=== PATIENT | female | born 2000 | race Hispanic/Latino ===

== ENCOUNTER 2024-07-29 09:59 | Emergency (ER) | payer OTHER ==
[~2024-07-29] VITALS: Ht 160 cm; Wt 68.0 kg
[2024-07-29 10:40] VITALS: BP 103/64
[2024-07-29 10:46] VITALS: BP 108/82
[2024-07-29 10:58] LABS: BASO% 0.9 % (0-3); EOS% 0.5 % (0-8); HEMATOCRIT 38.6 % (37.0-47.0); HEMOGLOBIN 12.6 g/dl (12.0-16.0); IMMATURE GRANULOCYTES 0.1 % (0.0-5.0); LYMPH% 24.3 % (15-41); MEAN CELL VOLUME 93.7 fL CALC (80.0-100.0); MEAN CORPUSCULAR HGB 30.6 pG CALC (26.0-32.0); MEAN CORPUSCULAR HGB CONC 32.6 g/dL CAL (32.0-36.0); MONO% 6.2 % (2-13); NEUT# 5.13 thou/uL (2.00-7.15); RED BLOOD COUNT 4.12 mill/uL (4.20-5.60); RED CELL DISTRI WIDTH 12.2 % (11.5-15.5)
[2024-07-29 10:58] LABS: URINE BILIRUBIN - DIPSTICK Negative (NEGATIVE); URINE BLOOD DIPSTICK Small (NEGATIVE); URINE GLUCOSE - DIPSTICK Negative (NEGATIVE); URINE KETONE Negative (NEGATIVE); URINE NITRITE - DIPSTICK Negative (Negative); URINE PROTEIN - DIPSTICK Negative (NEG-TRACE); URINE SPECIFIC GRAVITY >=1.030; URINE UROBILINOGEN - DIPSTICK 0.2 E.U./dL (0.2)
[2024-07-29 10:59] LABS: URINE COLOR Yellow; URINE LEUK ESTERASE Moderate (NEGATIVE)
[2024-07-29 11:00] VITALS: BP 109/53
[2024-07-29 11:00] LABS: URINE BACTERIA MANY hpf; URINE EPITHELIAL CELLS RARE EPI/hpf (0-FEW); URINE RBC 0-2 RBC/hpf (0-5)
[2024-07-29 11:15] VITALS: BP 116/80
[2024-07-29 11:23] LABS: ALBUMIN 4.4 g/dL (3.2-5.0); BILIRUBIN, TOTAL 0.3 mg/dL (0.02-1.3); CREATININE 0.6 mg/dL (0.5-1.0); POTASSIUM 4.2 mmol/l (3.5-5.1); TOTAL PROTEIN 7.5 g/dL (6.3-8.2)
[2024-07-29] MEDS ORDERED: CEPHALEXIN500 M1 PO (11:27)
[2024-07-29 11:31] VITALS: BP 100/48
[2024-07-29 11:41] VITALS: BP 100/48
== END 2024-07-29 11:41 | disposition home or self-care (01) | DRG 690 ==
LOC: ED 09:59
PROVIDERS: Family Medicine
DX: N39.0 Urinary tract infection, site not specified (principal)

== ENCOUNTER 2024-08-04 09:05 | Emergency (ER) | payer OTHER ==
[~2024-08-04] VITALS: Ht 160 cm; Wt 79.3 kg
[~2024-08-04 09:05] MED LIST: CEPHALEXIN500 M1 PO
[2024-08-04 09:32] VITALS: BP 118/54
[2024-08-04 10:08] LABS: URINE BILIRUBIN - DIPSTICK Negative (NEGATIVE); URINE BLOOD DIPSTICK Large (NEGATIVE); URINE GLUCOSE - DIPSTICK Negative (NEGATIVE); URINE KETONE Negative (NEGATIVE); URINE NITRITE - DIPSTICK Negative (Negative); URINE PH 5.5 (4.5-8.0); URINE PROTEIN - DIPSTICK Trace mg/dL (NEG-TRACE); URINE UROBILINOGEN - DIPSTICK 0.2 E.U./dL (0.2)
[2024-08-04 10:09] LABS: URINE COLOR Yellow; URINE LEUK ESTERASE Moderate (NEGATIVE)
[2024-08-04 10:16] LABS: URINE RBC 50-100 RBC/hpf (0-5); URINE WBC 50-100 WBC/hpf (0-5)
[2024-08-04 10:17] LABS: URINE BACTERIA FEW hpf
[2024-08-04] MEDS ORDERED: PHENAZOPYRIDINE HCL 100 MG/TAB PO ONE (10:30)
[2024-08-04] MEDS ORDERED: NITROFURANTOIN 100 MG/CAP PO ONE (10:30)
[2024-08-04] MEDS ORDERED: MACROBID100 M1 PO (10:30)
[2024-08-04 10:46] VITALS: BP 118/54
== END 2024-08-04 10:51 | disposition home or self-care (01) | DRG 690 ==
LOC: ED 09:05
PROVIDERS: Family Medicine
DX: N39.0 Urinary tract infection, site not specified (principal)

== ENCOUNTER 2024-08-26 16:21 | Emergency (ER) | payer OTHER ==
[~2024-08-26] VITALS: Ht 160 cm; Wt 77.0 kg
[~2024-08-26 16:21] MED LIST changes: +MACROBID100 M1 PO
[2024-08-26 16:52] VITALS: BP 133/99
[2024-08-26] MEDS ORDERED: SODIUM CHLORIDE 0.9% 1,000 ML IV ONE (16:55)
[2024-08-26] MEDS ORDERED: KETOROLAC TROMETHAMINE 30 MG/ML SDV IV ONE (16:55)
[2024-08-26] MEDS ORDERED: DiphenhydrAMINE HCL 50 MG/ML SDV IV ONE (16:55)
[2024-08-26] MEDS ORDERED: METOCLOPRAMIDE HCL 10 MG/2 ML SDV IV ONE (16:55)
[2024-08-26 17:00] VITALS: BP 127/78
[2024-08-26 17:11] LABS: BASO% 0.5 % (0-3); EOS% 0.5 % (0-8); HEMATOCRIT 39.2 % (37.0-47.0); HEMOGLOBIN 12.8 g/dl (12.0-16.0); IMMATURE GRANULOCYTES 0.2 % (0.0-5.0); LYMPH% 32.3 % (15-41); MEAN CELL VOLUME 92.9 fL CALC (80.0-100.0); MEAN CORPUSCULAR HGB 30.3 pG CALC (26.0-32.0); MEAN CORPUSCULAR HGB CONC 32.7 g/dL CAL (32.0-36.0); MONO% 6.6 % (2-13); NEUT# 5.46 thou/uL (2.00-7.15); NEUT% 59.9 % (42-76); RED BLOOD COUNT 4.22 mill/uL (4.20-5.60); RED CELL DISTRI WIDTH 11.6 % (11.5-15.5)
[2024-08-26 17:18] LABS: URINE BILIRUBIN - DIPSTICK Negative (NEGATIVE); URINE BLOOD DIPSTICK Trace-intact (NEGATIVE); URINE GLUCOSE - DIPSTICK Negative (NEGATIVE); URINE KETONE Negative (NEGATIVE); URINE LEUK ESTERASE Negative (NEGATIVE); URINE NITRITE - DIPSTICK Negative (Negative); URINE PROTEIN - DIPSTICK Negative (NEG-TRACE); URINE UROBILINOGEN - DIPSTICK 0.2 E.U./dL (0.2)
[2024-08-26 17:19] LABS: URINE COLOR Yellow
[2024-08-26 17:22] LABS: ALBUMIN 4.5 g/dL (3.2-5.0); BILIRUBIN, TOTAL 0.4 mg/dL (0.02-1.3); CREATININE 0.6 mg/dL (0.5-1.0); POTASSIUM 3.9 mmol/l (3.5-5.1); TOTAL PROTEIN 7.8 g/dL (6.3-8.2)
[2024-08-26 17:30] VITALS: BP 128/74
[2024-08-26] MEDS ORDERED: DEXAMETHASONE SOD. PHOSPHATE 10 MG/ML VIAL IV ONE (17:55)
[2024-08-26 18:00] VITALS: BP 110/66
[2024-08-26 18:40] VITALS: BP 110/66
== END 2024-08-26 18:42 | disposition home or self-care (01) | DRG 103 ==
LOC: ED 16:21
PROVIDERS: Family Medicine
DX: R51.9 Headache, unspecified (principal); Z20.822 Contact with and (suspected) exposure to COVID-19